=== PATIENT | male | born 1960 ===

== ENCOUNTER 2022-07-08 12:52 | Observation (INO) ==
[2022-07-08] MEDS ORDERED: HYDROmorphone INJ 1 MG/ML SYRINGE IV STA (12:57)
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
--- NOTE | 2022-07-08 13:06 | XRay Report ---
XR chest 1V portable HISTORY: 62 years-old Male chest pain acute chest pain COMPARISON: None TECHNIQUE: AP view of the chest FINDINGS: Cardiac silhouette is enlarged. No pneumothorax, pleural effusion, airspace consolidation or overt pu lmonary edema. Bones of the chest appear grossly intact. IMPRESSION: Cardiomegaly without acute process. ACT 112: Negative or not required by law. The above report was generated using voice recognition software. It may contain grammatical, syntax o r spelling errors. Electronically signed by: Artem Batista M.D. 07/08/2022 1:04 PM
[2022-07-08 13:17] LABS: Basophils # (auto) 0.07 K/uL (0-0.2); Basophils % (auto) 0.8 %; Eosinophils # (auto) 0.32 K/uL (0-0.50); Eosinophils % (auto) 3.8 %; Hematocrit (blood only) 42.8 % (40.1-51.0); Hemoglobin 14.6 g/dl (14.0-18.0); Immature Granulocytes # (auto) 0.04 K/uL (0.00-0.02); Immature Granulocytes % (auto) 0.5 %; Lymphocytes # (auto) 2.95 K/uL (1.2-3.4); Lymphocytes % (auto) 34.7 %; Mean Corpuscular Hgb Conc 34.1 g/dL (32.0-36.0); Mean Corpuscular Volume 87.9 fL (80.0-100.0); Mean Platelet Volume 10.1 fL (9.4-12.4); Monocytes % (auto) 8.2 %; Neutrophils # (auto) 4.41 K/uL (1.4-6.5); Platelet Count 286 K/uL (130-400); RDW Coefficient of Variation 12.8 % (11.5-14.5); RDW Standard Deviation 41.2 fL (36.4-46.3); Red Blood Count 4.87 M/uL (4.63-6.08); White Blood Count 8.49 K/ul (4.8-10.8)
[2022-07-08 13:22] LABS: iSTAT Creatinine 0.9 mg/dl (0.6-1.3); iSTAT Ionized Calcium 1.14 mmol/l (1.12-1.32); iSTAT Potassium 4.1 mmol/L (3.3-5.0)
[2022-07-08] MEDS ORDERED: niCARdipine HCL INJ 2.5 MG/ML 10 ML AMP ONE (13:22)
[2022-07-08] MEDS ORDERED: HEPARIN (PORCINE) 1000 UNIT/ML 10 ML (CATH LAB USE ONLY) ONE (13:22)
[2022-07-08] MEDS ORDERED: fentaNYL citrate 100 MCG/2 ML VIAL ONE (13:23)
[2022-07-08] MEDS ORDERED: NITROGLYCERIN/D5W 100MCG/ML 20ML SYR ONE (13:23)
[2022-07-08] MEDS ORDERED: MIDAZOLAM HCL 1 MG/ML 2ML VIAL ONE (13:23)
[2022-07-08 13:31] LABS: Partial Thromboplastin Time 27.6 Seconds (21.0-31.0); Prothrombin Time 10.3 Seconds (9.0-12.0)
[2022-07-08 13:38] LABS: Albumin Level 4.2 gm/dl (3.4-5.0); BUN Creatinine Ratio 19.5 (10-20); Bilirubin Direct 0.1 mg/dl (0-0.2); Bilirubin,Total 0.6 mg/dl (0.2-1.0); Calcium 8.7 mg/dl (8.5-10.1); Est GFR (African American) 114.3 ml/min; Est GFR (Non-African American) 98.6 ml/min; Magnesium 1.9 mg/dl (1.7-2.4)
[2022-07-08 13:44] LABS: Troponin I High Sensitivity 21.9 pg/ml (0-20)
--- NOTE | 2022-07-08 13:44 | Pre Anesthesia Assessment ---
Date of Service July 08, 2022 Pre Sedation Assessment Vital Signs Temp Pulse Pulse Resp BP BP Pulse Ox 07/08/22 13:37 55 L 20 172/93 H 96 07/08/22 13:00 94 07/08/22 13:00 57 L 20 158/88 H 94 07/08/22 12:47 98.1 F 58 L 19 158/88 H 94 O2 Del Method O2 Flow Rate 07/08/22 13:37 Room Air 07/08/22 13:00 Room Air 0 07/08/22 13:00 Room Air 07/08/22 12:47 Room Air Cardiovascular RRR, no murmur, no edema Respiratory normal respiratory effort, lungs clear to auscultation Pre-Sedation Airway Assessment Smoking Status: Former smoker Hx Sleep Apnea: No Hx Difficult Intubation: No Short, Thick Neck: No Thyromental Distance: > or= 3.5 Finger Breadths Procedure Planning Contraindications for Sedation: none Current Medications Reviewed: Yes Notes The planned sedation has been discussed with the patient. Informed Consent was obtained. I have identified the patient, determined the appropriateness of sedation and have assessed the patient immediately prior to the procedure. All medicine(s) and interventions are by my order.
[2022-07-08] MEDS ORDERED: ONDANSETRON INJ 2 MG/ML 2 ML VIAL IV PRN (14:24)
[2022-07-08] MEDS ORDERED: OPTIRAY 320 500ml IV ONE (14:29)
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
[2022-07-08] MEDS ORDERED: SODIUM CHLORIDE 0.9% 1000ML 1,000 ML IV SCH (14:30)
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
--- NOTE | 2022-07-08 14:39 | Post Anesthesia Assessment ---
Date of Service July 08, 2022 Post Sedation Assessment Vital Signs Temp Pulse Pulse Resp BP BP Pulse Ox 07/08/22 13:37 55 L 20 172/93 H 96 07/08/22 13:00 94 07/08/22 13:00 57 L 20 158/88 H 94 07/08/22 12:47 98.1 F 58 L 19 158/88 H 94 O2 Del Method O2 Flow Rate 07/08/22 13:37 Room Air 07/08/22 13:00 Room Air 0 07/08/22 13:00 Room Air 07/08/22 12:47 Room Air Recovery Score Activity: Moves 4 extremities Respiration: Deep Breath/Cough Circulation: +/-20% PreAnes Value Consciousness: Fully Awake Oxygen Saturation: O2 needed for >90% Discharge Sedation Level of Care: Fast Track Phase II Post Sedation Plan On clinical assessment, the patient appears to have tolerated the sedation without complications. Patient is recovering as anticipated. Patient will continue to be monitored by nursing and may be discharged when sedation discharge criteria are met per below protocol. Upon Completions of procedure up to 15 minutes continue every 5 minute vital signs and the P.A.R. score; then discharge to a Phase I or Fast Track to Phase II per the following guidelines: * Discharge Patient to appropriate Phase II area if PAR is 8 or greater or re turn to pre- procedure baseline. The post - procedure orders will be as directed. * If PAR score is less than 8 or not return to pre-procedure baseline then patient will follow Phase I monitoring till PAR is reached for Phase II. The Phase I may be done in procedure room or may call to secure a Phase I area. * If naloxone or flumazenil are used for reversal, hold in Phase I for continued monitoring from when last reversal dose was given for a minimum of 60 minutes or longer pending the nurse and/or physician discretion of patient condition before discharge to Phase II. Please call the Sedation Physician to re-evaluate and complete post-note for discharge to Phase II area. Do NOT discharge from procedure sedation or Phase 1 until post- sedation evaluation note is complete by procedure /sedation MD Sedation Discharge Instructions to be given to the patient at discharge to home.
--- NOTE | 2022-07-08 14:47 | Cardiac Catheterization ---
[facility] Data: [employer] Supervisor Cardiac Status Clinical evaluation leading to the procedure CAD Presenation: Non STEMI Anginal Classification: CCS IV Diagnostic Physicians Name: Yaya Cristobal MD Closure Device Recommendations: Medical Therapy and/or Counseling Cardiac Cath Procedure Full Procedure Date July 08, 2022 Pre-Procedure Diagnosis Pre-Procedure Diagnosis: Acute Coronary Syndrome AUC Score AUC Score: 8 Post-Procedure Diagnosis Post-Procedure Diagnosis: Normal Coronary Arteries Procedure(s) Performed Procedure(s) Performed: Coronary Angiography, Left Heart Cath and LV Angiography Cupola Operator Yaya Cristobal MD Estimated Blood Loss Estimated Blood Loss: 5 Medication(s) Medication(s): Fentanyl, Heparin, Lidocaine 1%, Nicardipine, Nitroglycerin and Versed Summary of Findings Indication: Suspected ACS Access: 6 Fr right radial artery Catheters: [place], pigtail Findings: LM -normal caliber, no significant disease LAD -medium caliber, extends to apex. No significant disease. High medium caliber OM1 without significant disease. Ramusmedium caliber, no significant disease Circumflex -medium caliber, no significant disease RCA -dominant, large caliber, angiographically normal LVEDP -18 LVEF 60%, no regional wall motion normalities, apparent LVH. No MR Arterial Closure: TR band Summary: 1. Angiographically normal coronary arteries 2. Mildly elevated intracardiac filling pressure (LVEDP 18) 3. Normal LV function. EF 60%, no wall motion abnormalities Recommendations: Continued evaluation for noncardiac causes of chest pain. Will obtain chest CTA Continued ASCVD risk factor modification Hemodynamics Rest Ao:: 121/73/95 Final Ao: 141/75/102 LV: 134/18 Recommendations Recommendations: Medical Therapy and/or Counseling Specimens Specimens: None Radiation Exposure (mGy) 994 Contrast (mls) 75 Anesthesia Moderate 1348 - 1403 Procedural Complication(s) None Disposition PCU I attest to the content of the Intraoperative Record and any orders documented therein. Any exceptions are noted below. [facility] Card Cath Procedure Codes Cardiac Catheterization Procedure 1: Cardiovascular Cath Procedures: 93871 Coronaries and LHC (+/-LV) Moderate Sedation Procedure 1: Sedation/Anesthesia: 27858 Mod Sedation by the same physician;Init15 Min Child Age 5 & Up PG Care Time/CCT Total # of Minutes Spent Total Time Spent with Patient: Total time spent is greater than 50% in coordination of care (as documented) at patient's floor/unit and/or counseling patient:
--- NOTE | 2022-07-08 14:54 | CT Scan Report ---
CT angio chest dissec wo/w con HISTORY: 62 years-old Male chest pain . Acute chest pain with recent cardiac catheterization COMPARISON: Chest radiograph of same day TECHNIQUE: CTA of the chest was obtained both with and without the use of 120. 3-D coronal and axial data set and were submitted for review. All measurements were obtained according to NASCET criteria. A dose lowering technique was used consistent with the principals of ADE. FINDINGS: CTA: Cardiomegaly without pericardial effusion. Mild coronary artery calcifications with calcifications al so noted involving the mitral annulus. Atherosclerosis of the thoracic aorta without aneurysm or diss ection. Patency of the imaged great vessels. The noncontrast scan demonstrates no intramural or media stinal hematoma. No pulmonary emboli are identified. CT CHEST: 1.3 cm hypodense left thyroid nodule. No lymphadenopathy. No pneumothorax, pleural effusion, airspace consolidation or overt pulmonary edema. Mild nonspecific bronchial wall thickening with subsegmental bibasilar atelectasis. Central airways are patent. No acute process of the imaged upper abdomen. Cholecystectomy. Unremarkable soft tissues. No acute fr acture identified. IMPRESSION: 1. No thoracic aortic aneurysm or dissection. 2. Cardiomegaly with mild coronary artery calcifications 3. No pericardial or pleural effusions. ACT 112: Negative or not required by law. The above report was generated using voice recognition software. It may contain grammatical, syntax o r spelling errors. Electronically signed by: Artem Batista M.D. 07/08/2022 2:52 PM
[2022-07-08] MEDS ORDERED: ACETAMINOPHEN 500 MG TAB PO STA (15:48)
[2022-07-08 15:57] LABS: D Dimer 520 ug/L FEU (0-500)
[2022-07-08] MEDS ORDERED: ALBUTEROL HFA 8 GM INHALER INH PRN (16:36)
[2022-07-08] MEDS ORDERED: LEVALBUTEROL TARTRATE 15 GM HFA.AER.AD INH SCH (16:45)
[2022-07-08] MEDS ORDERED: LACTULOSE SYRUP 10 GM/15 ML BTL 960 ML PO PRN (16:50)
--- NOTE | 2022-07-08 18:23 | Discharge Summary ---
Date of Service July 08, 2022 Admission HPI Per Admitting Provider Ronn Conrad is a 62-year-old male with past medical history of LVH, hypertension, diabetes, hyperlipidemia, asthma, seizure disorder, and peptic ulcer disease who presented today from local skilled nursing with several days of chest pain. The past 3 days he has had intermittent left-sided chest pain, and today he had sudden onset left-sided chest pain with radiation to his back and numbness into his left arm and dizziness. It is worse with exertion, but not associated with any shortness of breath, nausea, vomiting. EKG was obtained at the skilled nursing which showed NSR with LVH and T wave inversions in anterior lateral leads, questionable ST elevations, therefore he was transported to the ED for further evaluation. He received fentanyl by EMS for chest pain, Dilaudid in ED which has helped. EKG in our ED shows more pronounced T wave inversions in anterolateral leads when compared to prior EKGs. Patient was having 6/10 chest pain and a heart alert was called, patient brought emergently to the [facility]. Cardiac catheterization unremarkable, no stents placed. Upon presentation to ED, 158/88, bradycardic HR mid/high 50s, otherwise vital signs within normal limits. Labs remarkable for initial troponin of 21. CXR w/ cardiomegaly, no acute chest disease noted, chest CTA did not show any thoracic aortic aneurysm or dissection, there is cardiomegaly with mild coronary artery calcifications, no pericardial or pleural effusion. Admission Exam Per Admitting Provider General: awake, alert, no apparent distress Head: Normocephalic, atraumatic ENT: PERRL, EOMI, no pharyngeal exudate, mucous membranes moist Chest: left sided chest pain worse with respirations and palpation; Clear to auscultation, on room air, no adventitious breath sounds Cardiac: Regular rate and rhythm, no murmur, no JVD, normal peripheral pulses, good capillary refill Abdominal: NABS x 4 quadrants, soft, nontender to palpation, no rebound, guardi ng or tenderness Extremities: Normal inspection, no peripheral edema or erythema, calfs nontender to palpation Psych: Normal mood and affect Neuro: AAO x 3, strength intact bilaterally and rated 5/5, no motor deficits, speech is clear, no peripheral sensory deficits Skin: no rash or erythema Principal Diagnosis musculoskeletal chest pain Discharge Exam General: awake, alert, no apparent distress Head: Normocephalic, atraumatic ENT: PERRL, EOMI, no pharyngeal exudate, mucous membranes moist Chest: left sided chest pain better after tylenol; Clear to auscultation, on room air, no adventitious breath sounds Cardiac: Regular rate and rhythm, no murmur, no JVD, normal peripheral pulses, good capillary refill Abdominal: NABS x 4 quadrants, soft, nontender to palpation, no rebound, guarding or tenderness Extremities: Normal inspection, no peripheral edema or erythema, calfs nonten dwayne to palpation Psych: Normal mood and affect Neuro: AAO x 3, strength intact bilaterally and rated 5/5, no motor deficits, speech is clear, no peripheral sensory deficits Skin: no rash or erythema Discharge Data Allergies Allergy/AdvReac Type Severity Reaction Status Date / Time nickel Allergy Verified 11/01/21 07:13 Consultations Cardiology Procedures Performed Operation Date: 07/08/22 13:20 Actual Procedures p Cineradiography w/Routine Exam - Isidro Cristobal MD s Cath, Left with Cors and Vent - Isidro Cristobal MD Ordered Studies 07/08/22 13:20 CL Cath Imgs for PACS use only Stat 07/08/22 14:15 CT angio chest dissec wo/w con Urgent Hospital Course (1) Left-sided chest pain: Patient initially presented with 2-3 days of left-sided chest pain with radiation to arm. Present EKG with ST elevations, emergently brought to ED for further evaluation. On EKG obtained in ED, there are T wave inversions in the anterolateral leads, which are present on EKG from 2018, but appear more pronounced today. Heart alert was called in the ED, patient emergently brought to the [facility] where catheterization did not reveal any acute disease, Echo with EF 60%, no wall motion abnormalities. Initial troponin 21, will trend this overnight to peak. CTA of the chest does not show any aneurysm or dissection or pericardial, pleural effusions. D-dimer 20, mildly elevated and will adjusted for age, technically within normal limits. His chest pain is reproducible palpation of the left chest wall. Given the extensive cardiac work-up that rules out ACS/PE/dissection/pleural effusion/pericardial effusion, suspect this is musculoskeletal pain in nature, possibly from pulled muscle. Also think the numbness/tingling he may be having, since it is associated with neck movements, may warrant a nerve conduction study which can bee done as an outpatient. Recommend managing his pain with heat/ice, lidocaine, Tylenol, as well as avoiding NSAIDs as he reported a history of gastric ulcers. (2) Hypertension: Continue home medications, amlodipine, hydralazine, hydrochlorothiazide, lisinopril, unless otherwise advised by cardiology. (3) Hyperlipidemia: Continue atorvastatin. (4) Diabetes: Continue home medications. Diabetic diet ordered. A1c in AM. (5) Asthma: Continue home inhalers. (6) Seizure: Continue Dilantin. Checking a level. (7) H/O gastric ulcer: Patient unable to recall history about gastric ulcer, states he had an EGD 2 years ago in [place] for cardiac cath. Avoid NSAIDs for pain control. Plan - d/c back to [facility] Total Time Total Time Spent Total Time Spent (In Minutes): 40 Total Time Includes: Examination of the Patient, Discharge Planning, Medication Reconciliation and Communication With Other Providers Discharge Plan Discharge Items [facility]position[facility] Reason For Visit: CHEST PAIN Discharge Diagnosis: musculoskeletal chest pain possible left sided cervical radiculopathy Condition on Discharge: Good Activity: Resume your previous activity Lifting: Gradually increase as tolerated Bathing: No limitations Exercise/Sports: As tolerated Weightbearing: Full weightbearing Non-emergency contact: Primary Care Provider Call non-emergency contact if: you have any medication questions, your symptoms worsen, your pain is not controlled and your pain is worsening Follow-up/Referrals: Vania FLETCHER [Primary Care Provider] - Diet: Carb Consistent or DM2 and Heart Healthy Addtl Attending Provider Instructions: Mr. Conrad, You were admitted to the hospital today after you had chest pain that was concerning for ACS (acute coronary syndrome) or heart attack. Your EKG initially had some changes concerning for heart disease, so you had a cardiac catheterization that fortunately did not show any disease or blockage to the arteries of your heart. You had an ultrasound of your heart and a chest CTA that also looked good, without any concerning findings that could be causing your chest pain. We checked a lab marker called a d dimer due to concerns for a blood clot, but it was just minimally elevated, so it is very unlikely that a blood clot is causing your symptoms. Your chest pain is reproducible on exam when I push on your chest, which makes it very likely that this is muscular pain. I recommend using Tylenol, heat/ice, and topical creams to relieve your pain. I would not use medicines like ibuprofen or Aleve because of your history of stomach ulcers. You also mentioned some numbness in your left arm associated with neck pain when you turn your neck. I would recommend having a nerve conduction study done in the future. This can be arranged as an outpatient. Please continue taking your medications as you previously were. No adjustments to your medications have been made today. Please continue following a heart healthy, diabetic diet. Recommend daily exercise. Pending Studies at Discharge: No Stand-Alone Forms: My [facility] Skilled Items Patient informed of condition?: Yes DNR: No Discharge Level of Care: Other Communicable Disease: No Discharge Prognosis: Stable Lines: None Urinary Catheter: No Medications and DC Order Prescriptions: Continued Alvesco 80 mcg/actuation HFA aerosol inhaler 1 puff inhalation BID amlodipine 10 mg tablet 10 mg PO DAILY aspirin 81 mg tablet,chewable 81 mg PO DAILY hydralazine 25 mg tablet 25 mg PO TID levalbuterol tartrate [Xopenex HFA] 45 mcg/actuation HFA aerosol inhaler 1 puff inhalation Q6H phenytoin sodium extended [Dilantin Kapseal] 100 mg capsule 100 mg PO BID atorvastatin 10 mg tablet 10 mg PO DAILY lisinopril 40 mg tablet 40 mg PO QAM metformin 500 mg tablet 500 mg PO BID pantoprazole 40 mg tablet,delayed release (DR/EC) 40 mg PO DAILY lactulose 10 gram/15 mL solution 10 g PO DAILY hydrochlorothiazide 25 mg Tablet 25 mg PO QAM lisinopril 20 mg Tablet 20 mg PO BID albuterol sulfate 90 mcg/actuation Hfa Aerosol Inhaler 2 puff INHALATION QID PRN (Reason: Shortness Of Breath) atorvastatin 10 mg Tablet 10 mg PO HS hydralazine 25 mg Tablet 25 mg PO TID phenytoin sodium extended [Dilantin Extended] 100 mg Capsule 100 mg PO BID aspirin 81 mg Tablet,Delayed Release (Dr/Ec) 81 mg PO DAILY amlodipine 10 mg Tablet 10 mg PO DAILY metformin 1,000 mg Tablet 1,000 mg PO BID hydrochlorothiazide 25 mg Tablet 25 mg PO DAILY lactulose 10 gram/15 mL Solution 10 g PO DAILY PRN (Reason: Constipation) Alvesco 80 mcg/actuation Hfa Aerosol Inhaler 1 puff INHALATION Q12H Admission Data Admit Date/Time: 07/08/22 14:24 Attending Provider: Manny Luna Admit Provider: Isidro Cristobal Primary Care Provider: Vania FLETCHER Coding Level of Care Code OBSERV/HOSP SAME DATE LVL 3 Diagnoses Left-sided chest pain R07.9 Hypertension I10 Hypertension type: primary hypertension Hyperlipidemia E78.5 Diabetes E11.65 Diabetes mellitus complication status: with hyperglycemia Diabetes mellitus oysterman insulin use: without detention use Diabetes mellitus type: type 2 Asthma J45.909 Seizure R56.9 H/O gastric ulcer Z87.11
[2022-07-08] MEDS ORDERED: PHENYTOIN SODIUM ER 100 MG CAP PO SCH (21:00)
[2022-07-08] MEDS ORDERED: hydrALAZINE HCL 25 MG TAB PO SCH (21:00)
--- NOTE | 2022-07-09 06:37 | Electrocardiogram Report ---
Test Reason : Blood Pressure : / mmHG Vent. Rate : 060 BPM Atrial Rate : 060 BPM P-R Int : 182 ms QRS Dur : 100 ms QT Int : 462 ms P-R-T Axes : 051 010 136 degrees QTc Int : 462 ms Normal sinus rhythm Possible Left atrial enlargement Abnormal ECG No previous ECGs available Confirmed by Brendon Heath ([id number]) on 07/09/2022 6:36:44 AM Referred By: Vania FLETCHER Confirmed By:Brendon Heath
[2022-07-09] MEDS ORDERED: amLODIPine BESYLATE 5 MG TAB PO SCH (09:00)
[2022-07-09] MEDS ORDERED: lisinopril 40 MG TAB PO SCH (09:00)
[2022-07-09] MEDS ORDERED: ASPIRIN 81 MG ECTAB PO SCH (09:00)
[2022-07-09] MEDS ORDERED: ATORVASTATIN 10 MG TAB PO SCH (09:00)
[2022-07-09] MEDS ORDERED: FLUTICASONE FUROATE 100MCG 14 PUFFS/INHALER INH SCH (09:00)
[2022-07-09] MEDS ORDERED: hydroCHLOROthiazide 25 MG TAB PO SCH (09:00)
[2022-07-09] MEDS ORDERED: PANTOprazole 40 MG TAB PO SCH (09:00)
== END 2022-07-08 18:55 ==
LOC: ED 12:52 → CC 13:35 → 4W 13:35